=== PATIENT | male | born 1945 | race Caucasian/White ===

== ENCOUNTER 2017-04-23 18:15 | Emergency (ER) | payer MEDICARE, BC ==
[~2017-04-23] VITALS: Ht 180.3 cm; Wt 117.0 kg
[~2017-04-23 18:15] MED LIST: ALLO100T PO; APIX5TAB PO; ASPI81TA81; ATOR1TAB18 PO; CARV12.52 PO; COQ-100C2; FURO40TA PO; ISOS30TA3 PO; LANTUS2P SQ; NITR0.4S SL; NOVOLOGP2 SQ; RENATAB; SACU1TAB PO; TAMS0.4C4 PO; TRAM50TA PO
[2017-04-23 18:19] VITALS: BP 141/69; PULSE 78; RESP 18; TEMP 98.2; O2SAT 95
[2017-04-23] MEDS ORDERED: BOSW5TAB PO (18:33)
[2017-04-23] MEDS ORDERED: RENAL MULTIVITAMIN (18:33)
[2017-04-23] MEDS ORDERED: COQ-30CA2 PO (18:33)
[2017-04-23] MEDS ORDERED: NOVOLOGP2 SQ (18:33)
--- NOTE | 2017-04-23 18:33 | PD ---
HPI Chief Complaint: Lump, Cyst, Hernia Time Seen by Provider: 18:29 Travel History International Travel<30 days: No Contact w/Intl Traveler<30days: No Traveled to known affect area: No History of Present Illness HPI Patient 72-year-old male presents emergency Department with a painful lesion on his right thorax. States symptoms been present for the past few days and gradually worsening.. Patient notably has a history of end-stage renal disease on hemodialysis and last dialyzed today. 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 States is never turned red like it is today. Patient denies any fever nausea or vomiting shortness of breath. PFSH Past Medical History Hx Anticoagulant Therapy: Yes (ELIQUIS) Arthritis: No Asthma: No Atrial Fibrillation: Yes Autoimmune Disease: No Blood Disorders: No Anxiety: No Depression: Yes Heart Rhythm Problems: No Cancer: No Cardiovascular Problems: Yes (HTN, ) High Cholesterol: Yes Chemotherapy: No Chest Pain: Yes Congestive Heart Failure: Yes COPD: No Cerebrovascular Accident: Yes (BRAIN INFARCTION APPROX [address]) Coronary Artery Disease: Yes Diabetes: Yes Patient Takes Glucophage: No Diminished Hearing: No Endocrine: Yes Gastrointestinal Disorders: No GERD: No Glaucoma: No Gout: Yes Genitourinary: No Headaches: No Hepatitis: No Hiatal Hernia: No Heparin Induced Thrombocytopen: Yes Hypertension: Yes Immune Disorder: No Implanted Vascular Access Dvce: Yes (RIGHT ARM DIALYSIS FISTULA) Kidney Stones: No Musculoskeletal: No Neurologic: No Psychiatric: No Reproductive: No Respiratory: No Integumentary: No Myocardial Infarction: No Radiation Therapy: No Renal Failure: Yes Seizures: No Sickle Cell Disease: No Sleep Apnea: Yes Thyroid Disease: No Ulcer: No PNEUMOCCOCAL Vaccine (Year): 2008 Past Surgical History Abdominal Surgery: No AICD: No Appendectomy: No Arteriovenous Shunt: No Cardiac Surgery: Yes (PACE MAKER/BYPASS) Cholecystectomy: No Coronary Artery Bypass Graft: Yes (X2) Ear Surgery: No Endocrine Surgery: No Eye Surgery: No Genitourinary Surgery: No Gynecologic Surgery: No Insulin Pump: No Joint Replacement: No Neurologic Surgery: No Oral Surgery: No Pacemaker: Yes (medtronic) Thoracic Surgery: Yes (AICD, CABG) Other Surgery: Yes (CATARACT, LT HAND, LT LEG) Social History Alcohol Use: Yes (WEEKLY) Tobacco Use: No Substance Use: No Allergies-Medications (Allergen,Severity, Reaction): Coded Allergies: Heparin (Verified Allergy, Severe, HEPARIN INDUCED THROMBOCYTOPENIA, ) Reported Meds & Prescriptions Reported Meds & Active Scripts Active Bactrim DS (Sulfamethoxazole-Trimethoprim) 800-160 Mg Tab 1 Tab PO BID Reported Osteo Bi-Flex One A Day (Iywqcveid-Jbvyyzajiwz-Cbwsaqd) 1 Tab 1 Tab PO BID [Renal Multivitamin] Coq-10 (Coenzyme Q10 (Ubidecarenone)) 30 Mg Cap 12.5 Mg PO DAILY Novolog Inj (Insulin Aspart) 1,000 Unit/10 Ml Vial 30 Units SQ AFTER MEALS Tramadol (Tramadol HCl) 50 Mg Tab 50 Mg PO Q8H PRN Isosorbide Mononitrate ER (Isosorbide Mononitrate) 30 Mg Mirna 30 Mg PO DAILY Nitrostat SL (Nitroglycerin) 0.4 Mg Subl 0.4 Mg SL DIRECTED PRN 1 tablet under the tongue as needed for chest pain. Repeat every 5 minutes for a total of 3 DOSES or call 911 if NO relief. Eliquis (Apixaban) 5 Mg Tab 5 Mg PO BID Aspir-81 (Aspirin) 81 Mg Tabdr Carvedilol 12.5 Mg Tab 12.5 Mg PO BID Allopurinol 100 Mg Tab 100 Mg PO DAILY Furosemide 40 Mg Tab 40 Mg PO DAILY Entresto (Sacubitril-Valsartan) 24-26 Mg Tab 1 Tab PO DAILY Atorvastatin (Atorvastatin Calcium) 80 Mg Tab 80 Mg PO HS Lantus Inj (Insulin Glargine) 1,000 Unit/10 Ml Vial 100 Units SQ HS Review of Systems Except as stated in HPI: all other systems reviewed are Neg Physical Exam Narrative GENERAL: Well-nourished, well-developed patient. SKIN: There is a surgical scar well-healed on the right chest wall in the 9 o' clock position of the right breast. Lateral to this in the extreme 9 o'clock position of the right breast there is a fluctuant grape-sized area surrounded by minimal induration but cellulitis extending approximately 6 cm posterior and medial. No breast mass felt. HEAD: Normocephalic. EYES: No scleral icterus. No injection or drainage. NECK: Supple, trachea midline. No JVD or lymphadenopathy. CARDIOVASCULAR: Regular rate and rhythm without murmurs, gallops, or rubs. RESPIRATORY: Breath sounds equal bilaterally. No accessory muscle use. GASTROINTESTINAL: Abdomen soft, non-tender, nondistended. MUSCULOSKELETAL: No cyanosis, or edema. BACK: Nontender without obvious deformity. No CVA tenderness. Data Data Last Documented VS Vital Signs Date Time Temp Pulse Resp B/P Pulse Ox O2 Delivery O2 Flow Rate FiO2 04/23/17 19:00 72 17 128/61 96 Room Air 04/23/17 18:19 98.2 Orders Ed Poc Ultrasound (04/23/17 ) Lidocai-Epi 1%-1:100,000 Inj (Xylocaine- (04/23/17 19:00) Lidocaine 2% Inj (Xylocaine 2% Inj) (04/23/17 19:00) Sulfamet-Trimeth Ds 800-160 Mg (Bactrim (04/23/17 19:45) MDM Medical Decision Making Medical Screen Exam Complete: Yes Emergency Medical Condition: Yes Differential Diagnosis Inflammatory carcinoma seems unlikely, cellulitis, abscess, infected sebaceous cyst. Narrative Course Patient was roomed emerged permit, ultrasound suggested abscess versus infected sebaceous cyst. I highly doubt an inflammatory carcinoma. Discussed this differential diagnosis with him and recommended that he follow-up with his primary care physician for consideration of mammogram and he has an appointment later this week. Incision and drainage successful and patient will be placed on Bactrim first dose given in the emergency department. He is stable for discharge at this time. Discussed symptomatic management home and returned ED criteria. Procedures Procedure Narrative Bedside ultrasound soft tissue: Patient has cobblestoning and induration surrounding a cystic like structure approximately 2 x 2 centimeters in the position described above. Amenable to ER drainage. INCISION AND DRAINAGE: The area was prepped and was sterilely draped. A subcutaneous wheal of 2 % Xylocaine plain with a total number 5 mL was used to anesthetize the area properly. A number 11 scalpel was used to make a 1 -cm incision across the area of the abscess. The abscess was drained, yielding sebum and pus. The wound was explored bluntly and no loculations were appreciated, the cyst wall was removed to the best of my ability. Irrigated with normal saline. Half inch iodoform packing was placed in the wound. Sterile dressing applied. Patient advised to have packing removed in two days. Diagnosis Primary Impression: Infected sebaceous cyst of skin Additional Instructions: Follow-up with Dr. Ramos this week as scheduled, remove the packing in 48 hours. Watch for worsening redness or fevers. Take antibiotics as prescribed. Keep the wound clean and dry, showering is okay, apply soap and water. Med/Other Pt SpecificInfo: Prescription(s) given Scripts Sulfamethoxazole-Trimethoprim (Bactrim DS)800-160 Mg Tab1 Tab PO BID #14 TAB Ref 0 Prov:Thaddeus Estes MD 04/23/17 Disposition: 01 DISCHARGE HOME Condition: Stable Thaddeus Estes MD Apr 23, 2017 18:33
[2017-04-23 19:00] VITALS: BP 128/61; PULSE 72; RESP 17; O2SAT 96
[2017-04-23] MEDS ORDERED: LIDOCAINE 1%/EPINEPHrine 1:100,000 SOLN 20 ML VIAL INFIL ONE (19:00)
[2017-04-23] MEDS ORDERED: LIDOCAINE HCL 2% 50 ML VIAL INFIL ONE (19:00)
[2017-04-23] MEDS ORDERED: BACT800T5 PO (19:35)
[2017-04-23] MEDS ORDERED: SULFAMETHOXAZOLE-TRIMETHOPRIM DS 800-160 MG TAB PO ONE (19:45)
== END 2017-04-23 20:04 | disposition home or self-care (01) ==
LOC: PHED 18:15
DX: L72.3 Sebaceous cyst (principal); I12.0 Hypertensive chronic kidney disease with stage 5 chronic kidney disease or end stage renal disease; N18.6 End stage renal disease; E78.00 Pure hypercholesterolemia, unspecified; I50.9 Heart failure, unspecified; I25.10 Atherosclerotic heart disease of native coronary artery without angina pectoris; Z99.2 Dependence on renal dialysis; Z79.01 Long term (current) use of anticoagulants
CPT/HCPCS: 10061

== ENCOUNTER → 2017-05-09 | Outpatient (CLI) | payer MEDICARE, BC ==
[~2017-05-09] MED LIST changes: +BACT800T5 PO; +BOSW5TAB PO; -COQ-100C2; +COQ-30CA2 PO; +RENAL MULTIVITAMIN; -RENATAB; -TAMS0.4C4 PO
--- NOTE | 2017-05-15 10:48 | RSPPFT ---
DATE OF PROCEDURE: 05/09/17 COMMENTS: VOLUMES DYNAMIC: FVC and FEV1 moderately reduced. STATIC: TLC, RV and FRC moderately reduced. FLOWS: FEV1% normal; FEF 25-75 mildly reduced. DIFFUSION: Severely reduced. FLOW VOLUME LOOP; Restrictive configuration with terminal airflow obstruction. IMPRESSION: Mild to moderate restrictive ventilatory defect with a severe reduction in diffusion and terminal airflow obstruction. No significant improvement post-bronchodilator.
== END ==
LOC: PHRSP 08:05
PROVIDERS: ATTEND Internal Medicine
DX: J84.10 Pulmonary fibrosis, unspecified (principal)
CPT/HCPCS: 94060; 94620; 94726; 94729

== ENCOUNTER 2017-11-24 11:37 | Emergency (ER) | payer MEDICARE, BC | END 2017-11-24 12:11 | disposition home or self-care (01) | LOC: PHEFT 11:37 | DX: Z76.0 Encounter for issue of repeat prescription (principal); E11.9 Type 2 diabetes mellitus without complications; E78.00 Pure hypercholesterolemia, unspecified; F32.9 Major depressive disorder, single episode, unspecified; I11.0 Hypertensive heart disease with heart failure; I25.10 Atherosclerotic heart disease of native coronary artery without angina pectoris; I48.91 Unspecified atrial fibrillation; I50.9 Heart failure, unspecified; Z86.73 Personal history of transient ischemic attack (TIA), and cerebral infarction without residual deficits; Z99.2 Dependence on renal dialysis; Z95.1 Presence of aortocoronary bypass graft; Z79.4 Long term (current) use of insulin | CPT/HCPCS: 99281 ==

== ENCOUNTER 2017-12-17 13:48 | Day surgery (SDC) | payer MEDICARE, BC ==
[~2017-12-17] VITALS: Ht 180.3 cm; Wt 115.3 kg
[~2017-12-17 13:48] MED LIST changes: -ATOR1TAB18 PO; +ATOR80TA45 PO; -BACT800T5 PO; -ISOS30TA3 PO; +NUCY50TA10 PO; -TRAM50TA PO
[2017-12-17] MEDS ORDERED: LACTATED RINGER'S 1000 ML IV PRN (14:15)
[2017-12-17] MEDS ORDERED: SODIUM CHLORID 0.9% 500 ML IV PRN (14:15)
[2017-12-17] MEDS ORDERED: MUPIROCIN 2% OINT 1 APPLIC/GM SYR NASAL SCH (14:15)
[2017-12-17] MEDS ORDERED: NS 1000 ML IV SCH (14:15)
[2017-12-17] MEDS ORDERED: METOPROLOL TARTRATE 25 MG TAB PO PRN (14:15)
[2017-12-17] MEDS ORDERED: CHLORHEXIDINE GLUCONATE 2 % 1 PACK (2 CLOTHS) TOPICAL PRN (14:15)
[2017-12-17] MEDS ORDERED: POVIDONE IODINE 5% (ANTISEPSIS KIT) 4 APPLICATIONS EACH NARE SCH (14:15)
[2017-12-17] MEDS ORDERED: ceFAZolin 2 GM PREMIX 50 ML IV SCH (14:15)
[2017-12-17] MEDS ORDERED: POVIDONE IODINE 5% (ANTISEPSIS KIT) 4 APPLICATIONS EACH NARE PRN (14:15)
[2017-12-17] MEDS ORDERED: CHLORHEXIDINE GLUCONATE 2 % 1 PACK (2 CLOTHS) TOPICAL SCH (14:15)
[2017-12-17 14:28] VITALS: BP 148/83; PULSE 79; RESP 18; TEMP 97.6; O2SAT 98
[2017-12-17] MEDS ORDERED: VANCOMYCIN 1000 MG/NS 250 ML IV SCH ×2 (15:00)
[2017-12-17 15:10] LABS: AUTOMATED NEUTROPHIL # 7.2 TH/MM3 (1.8-7.7); BASOPHIL % 0.3 % (0.0-2.0); EOSINOPHIL # 0.1 TH/MM3 (0-0.4); EOSINOPHIL % 0.8 % (0.0-4.0); HEMATOCRIT 30.7 % (39.0-51.0); HEMOGLOBIN 9.9 GM/DL (13.0-17.0); LYMPH % 10.5 % (9.0-44.0); LYMPHOCYTE # 0.9 TH/MM3 (1.0-4.8); MEAN CELL VOLUME 62.6 FL (80.0-100.0); MEAN CORPUSCULAR HEMOGLOBIN 20.2 PG (27.0-34.0); MEAN CORPUSCULAR HGB CONC 32.2 % (32.0-36.0); MEAN PLATELET VOLUME 10.4 FL (7.0-11.0); MONOCYTE # 0.6 TH/MM3 (0-0.9); NEUT % 81.4 % (16.0-70.0); PLATELET COUNT 110 TH/MM3 (150-450); RED BLOOD COUNT 4.91 MIL/MM3 (4.50-5.90); RED CELL DISTRIBUTION WIDTH 17.4 % (11.6-17.2); WHITE BLOOD COUNT 8.9 TH/MM3 (4.0-11.0)
[2017-12-17 15:23] LABS: INTERNATIONAL NORMALIZED RATIO 1.1 RATIO; PROTHROMBIN TIME - PATIENT 10.8 SEC (9.8-11.6)
[2017-12-17 15:26] LABS: BICARBONATE 25.1 MEQ/L (21.0-32.0); CALCIUM 8.9 MG/DL (8.5-10.1); CREATININE 3.29 MG/DL (0.60-1.30)
[2017-12-17 15:55] LABS: OVALOCYTES 2+ (NORMAL)
[2017-12-17 15:56] LABS: ACANTHOCYTES 1+ (NORMAL); BURR CELLS 1+ (NORMAL)
[2017-12-17] MEDS ORDERED: PROPOFOL 200 MG/20 ML AMP ONE (19:01)
[2017-12-17] MEDS ORDERED: MIDAZOLAM HCL 2 MG/2 ML VIAL ONE (19:02)
[2017-12-17] MEDS ORDERED: LIDOCAINE HCL 2% 50 ML VIAL ONE (19:24)
[2017-12-17] MEDS ORDERED: VANCOMYCIN 500 MG VIAL ONE (19:24)
--- NOTE | 2017-12-17 20:09 | CATHPROC ---
Patient Name: NKECHI ACUNA Study #: [id number] Initial MD: Safia Lenz Date of : 1945 Study Date: 12/17/2017 Cardiac Catheterization Report 12/17/2017 8:09:34 PM Financial #: [id number] 1 of 8 Patient Name: NKECHI ACUNA Study #: [id number] Initial MD: Safia Lenz Date of : 1945 Study Date: 12/17/2017 Entire Case Report Patient Information Patient Name NKECHI ACUNA Date of 1945 Age 72 years Financial # [id number] Gender M AlternateID Lab Number 6 Room Number DC09 Height (in) 71.0 Height (cm) 180.3 BSA 2.33 Weight (lbs) 253.7 Weight (kg) 115.3 Patient Address/Phone Number Home Address [facility] Home Phone Number [address] [facility] [place] [address] Study Information Study Number Admission Scheduled Start Study Start [id number] Dec 17 2017 1:48PM 12/17/2017 Dec 17 2017 6:49PM [place] Cardiac Pacer/ICD Admit Source Facility Department Other [facility] - [facility] Physician and Clinical Staff Initial Safia Alas Broadband Engineer Jocy Wheeler,LICENSING SPECIALIST Other Anesthesia, ELEVATOR CONSTRUCTOR Recorder Frances Ridley,CHELY Scrub Diamond Gallegos,PROJECT DIRECTOR TECH2 12/17/2017 8:09:34 PM Financial #: [id number] 2 of 8 Patient Name: NKECHI ACUNA Study #: [id number] Initial MD: Safia Lenz Date of : 1945 Study Date: 12/17/2017 Equipment Time [employer] Head Description Size Mfg Part Number Used/Scraped DERMABOND, ADHESIVE SKIN [id number] 18:51 CORDIS/PACER * Used GLUE MINI *[id number] 18:51 MEDLINE INDUSTRIES SUTURE, STRIP PLUS 1/2" * Used *[id number] 18:51 MEDLINE PACER NDIAYE, LIMB * 2530 *[id number] Used [id number] 18:51 MEDLINE PACER PACK, PACER CUSTOM * Used *[id number] 19:36 Needle Sponge Count 1 111 Used 19:37 Needle Sponge Count 1 1 Used 19:36 Needle Sponge Count 20 200 Used SUTURE, 2-0 VICRYL [CT1] ([id number]) [id number] 18:51 [employer],WARM AIR CCL * Used *[id number] [facility] PAD, ELECTROSURGICAL 18:51 * [id number] *[id number] Used SURGICAL GROUNDING ORANGE 20:07 VITATRON MEDTRONIC MONITOR, PACEMAKER\\ICD [id number] Used PACEMAKER, AMPLIA MRI WOVEN BLIND LOOM TENDER-D 19:48 VITATRON MEDTRONIC DDEDDDDR [id number] Used SURESCAN [id number] 19:22 VITATRON MEDTRONIC PLASMABLADE, PEAD 3.0S * Used *[id number] Equipment Model, Serial, Lot Number and Expiration Data Description Model Number Serial Number Lot Number Expiration Date PACEMAKER, AMPLIA MRI WOVEN BLIND LOOM TENDER-D [id number] 11-01-2018 [employer] Insurance Information Insurance Payor Medicare Third Alliance Party Third Alliance Party Number MEDICARE A B MCRAB History: Allergies Allergy Reaction Heparin HEPARIN INDUCED THROMBOCYTOPENIA heparin (porcine) HEPARIN INDUCED THROMBOCYTOPENIA enoxaparin HEPARIN INDUCED THROMBOCYTOPENIA JEREMIAH Inhibitors 12/17/2017 8:09:34 PM Financial #: [id number] Patient Name: NKECHI ACUNA Study #: [id number] Initial MD: Safia Lenz Date of : 1945 Study Date: 8 History: Risk Factors Hypertension Dyslipidemia Yes Yes Prior CABG Yes Diabetes No Labs Hgb (g/dl) Hct (%) RBC (MIL/MM3) WBC (l/cumm) Platelets (thousands) 11.60-17.00 35.00-51.00 4.00-5.90 4.00-11.00 150.00-450.00 9.0 30 4.9 8.9 110 Glucose (mg/dl) BUN (mg/dl) Creatinine (mg/dl) BUN:Creatinine (1:x) 74.00-106.00 7.00-18.00 0.50-1.30 10.00-20.00 163 25 3.3 7.6 Na (meq/l) K (meq/l) 136.00-145.00 3.50-5.10 138 4 INR (PTT:PT) 0.90-1.10 1.1 Medication Medication Total Dose (Bolus/Oral) Medication Total Dosage/Unit 2% XYLOCAINE 50 mL Medications (Bolus/Oral) Medication Time Given Dosage/Unit Administered By Reason 2% XYLOCAINE 12/17/2017 7:43:59 PM 50 mL Safia Lenz 50 mL 2% XYLOCAINE given by Safia Lenz in Left upper chest via Subcutaneous. Medication (Drip) Medication Time Given Dosage/Unit Concentration/Unit Diluent (ml) Solution ANCEF 12/17/2017 7:30:58 PM 1 g 1 g ANCEF given by Anesthesia, ELEVATOR CONSTRUCTOR via Peripheral IV. Ordered by Safia Lenz. Reason: As per physi cians verbal order. VANCOMYCIN DRIP 12/17/2017 7:30:00 PM 1 g 1 g VANCOMYCIN DRIP given by Anesthesia, ELEVATOR CONSTRUCTOR via Peripheral IV. Ordered by Safia Lenz. Reason: As per physicians verbal order. 12/17/2017 8:09:34 PM Financial #: [id number] 4 of 8 Patient Name: NKECHI ACUNA Study #: [id number] Initial MD: Safia Lenz Date of : 1945 Study Date: 12/17/2017 Initial Case Assessment Cardiovascular HR Rhythm NIBP Chest Pain 69 sr 133/80 0 Edema Present Skin color Skin None Normal Warm Dry Circulatory - Right Pulses Radial 1 Scale (0,1,2,3,4,d) Circulatory - Left Pulses Radial 1 Scale (0,1,2,3,4,d) Circulatory - Lower Extremities Color Lower Right Color Lower Left Normal Normal Neurological State Oriented to time-place- Alert Moves all extremities person Respiration - General Respiration Rate SpO2 (%) O2 (lpm) (B/min) 20 99 4 12/17/2017 8:09:34 PM Financial #: [id number] 5 of 8 Patient Name: NKECHI ACUNA Study #: [id number] Initial MD: Safia Lenz Date of : 1945 Study Date: 12/17/2017 Final Case Assessment Cardiovascular HR Rhythm NIBP Chest Pain 71 sr 146/80 0 Circulatory - Right Pulses Radial 1 Scale (0,1,2,3,4,d) Circulatory - Left Pulses Radial 1 Scale (0,1,2,3,4,d) Circulatory - Lower Extremities Color Lower Right Color Lower Left Normal Normal Neurological State Lethargic Moves all extremities Respiration - General Respiration Rate SpO2 (%) O2 (lpm) (B/min) 18 100 4 Chronological Log Time Study Chronological Log 19:16:55 Patient arrived via Bed. 19:17:10 Patient Name, D.O.B, / Armband Verified By R.N. 19:17:15 Consent signed by the physician and the patient and verified by the [facility] staff. 19:17:18 Pre-op and post- op instructions given; patient acknowledges understanding of instructions. 19:17:20 Verbal Stimulation=2 Physical Stimulation=2 Airway=2 Respiration=2 TOTAL=8. (0=absent, 1=li mited, 2=present) 19:18:00 Anesthesia at bedside. Assumes care of patient. Nayan 19:20:41 Patient has been NPO for More than 6Hrs. 19:20:43 Skin Breakdown- none pt pt 19:20:49 Patient Warmer Placed on the Table. 19:20:49 Disposable Defibrillator Pads Placed On Patient. 19:20:50 Kasandra Prominences Protected 12/17/2017 8:09:34 PM Financial #: [id number] Patient Name: NKECHI ACUNA Study #: [id number] Initial MD: Safia Lenz Date of : 1945 Study Date: 12/17/2017 19:20:51 A # 20 IV was noted in the Hand (right). Grade = 0 0.9ns kvo 19:21:05 History and physical on the chart. 19:21:11 Table restraints applied according to hospital policy 19:21:15 2% CHLORHEXIDINE GLUCONATE WASH AND NASAL SWIPE DONE PRIOR TO PROCEDURE. 19:21:18 Bovie ground pad applied to: right thigh 19:21:33 Left Upper Chest Prepped Times Two. 19:28:33 Device rep present. 1 g VANCOMYCIN DRIP given by Anesthesia, ELEVATOR CONSTRUCTOR via Peripheral IV. Ordered by Safia Lenz. Reas on: As per 19:30:00 physicians verbal order. Assessment: Initial Case, HR=69 BPM, Rhythm=sr, FSNS=526/80 mmhg, Chest Pain=0, Edema=None, Col or=Normal, Skin = Warm, Dry Right Pulses: Radial=1 Left Pulses: Radial=1 19:30:20 Lower Right Extremities: Color=Normal Lower Left Extremities: Color=Normal Neurological: State=Alert, Ox3, SCHMITZ Respiration: Resp=20 B/min, SpO2=99 %, O2=4 lpm 1 g ANCEF given by Anesthesia, ELEVATOR CONSTRUCTOR via Peripheral IV. Ordered by Safia Lenz. Reason: As per physicians verbal 19:30:58 order. 19:31:06 MD arrived. First Sponge And Instrument Count Done by Diamond Gallegos PROJECT DIRECTOR TECH2. 19:36:04 Hypo's: 1, Sponges: 20, Bovie/scratch: 1 Sutures: 3, Blades: 1, Instruments: 26, Syveck Patches: 0 Time Out. Correct patient, procedure, procedure equipment, site and side verified with physicia n present. Time 19:43:09 concurred by MD, individual staff and ELEVATOR CONSTRUCTOR. Time Out #2 - Consents verified, patient in correct position, all results are labled and displa yed, safety precautions 19:43:25 taken, antibiotics administered. Time out concurred by MD, individual staff and ELEVATOR CONSTRUCTOR in procedu re 19:43:43 Case Start 19:43:59 50 mL 2% XYLOCAINE given by Safia Lenz in Left upper chest via Subcutaneous. 19:44:38 Surgical Incision Made. 19:44:45 A pocket was created at the L Upper Chest. 19:49:44 A device was explanted. 19:54:58 Pocket flushed with antibiotic solution 19:55:00 A PACEMAKER, AMPLIA MRI WOVEN BLIND LOOM TENDER-D SURESCAN DDEDDDDR was connected and placed in the pocket. 19:55:06 Implant Procedure was performed. 19:55:12 A Bivent ICD Implant . (Dual) Gen change Second Sponge And Instrument Count Done by Diamond Gallegos PROJECT DIRECTOR TECH2. 19:58:32 Hypo's: 1, Sponges: 20, Bovie/scratch: 1 Sutures: 3, Blades: 1, Instruments:, Syveck Patches: 20:00:09 The pocket was closed. Final Sponge And Instrument Count Done by Diamond Gallegos PROJECT DIRECTOR TECH2. 20:03:52 Hypo's: 1, Sponges: 20, Bovie/scratch: 1 Sutures: 3, Blades: 1, Instruments: 26, Syveck Patches: 0 20:04:22 Steri-strips and a sterile dressing applied to site. 20:05:39 DOCU called. Spoke to Duglas 12/17/2017 8:09:34 PM Financial #: [id number] Patient Name: NKECHI ACUNA Study #: [id number] Initial MD: Safia Lenz Date of : 1945 Study Date: 12/17/2017 20:05:47 Bedside Report will be given. 20:06:00 Case End 20:06:13 No case complications noted. 20:06:14 Cine recording checked. 20:06:17 Implantable Device card placed in patient's chart. 20:06:21 Defibrillator and ground pads removed. Skin intact. Assessment: Final Case, HR=71 BPM, Rhythm=sr, RUXR=067/80 mmhg, Chest Pain=0 Right Pulses: Radial=1 Left Pulses: Radial=1 20:08:10 Lower Right Extremities: Color=Normal Lower Left Extremities: Color=Normal Neurological: State=Lethargic, SCHMITZ Respiration: Resp=18 B/min, WdF4=694 %, O2=4 lpm 20:12:50 Patient moved to stretcher End Study - Contrast Media Used In Study Contrast Total Opened (mL) Total Used (mL) Total Wasted (mL) Unspecified 0 0 0 End Study - Maximum Contrast Load Max Contrast Load (mL) 174.7 End Study - Radiation Exposure Fluoro Time (minutes) 0.1 End Study - Patient Disposition Complications Transferred To Interventional Outcome No Telemetry Bed successful 12/17/2017 8:09:34 PM Financial #: [id number]
[2017-12-17] MEDS ORDERED: CEPH-460 PO (20:10)
[2017-12-17] MEDS ORDERED: HYDR-3366 PO (20:10)
[2017-12-17] MEDS ORDERED: ONDANSETRON HCL 4 MG/2 ML VIAL IV PUSH PRN (20:15)
[2017-12-17] MEDS ORDERED: SODIUM CHLORIDE 0.9% FLUSH 10 ML FLUSH IV FLUSH PRN (20:15)
[2017-12-17] MEDS ORDERED: SODIUM CHLORIDE 0.9% FLUSH 10 ML FLUSH IV FLUSH SCH (21:00)
--- NOTE | 2017-12-19 09:39 | EKG ---
Date Performed: 12/17/2017 Time Performed: 14:51:58 PTAGE: 72 years EKG: Paced rhythm Abnormal ECG PREVIOUS TRACING : 10/01/2016 13.23 Since the prior tracing, there has been no significant selby DOCTOR: Kervin Young Interpretating Date/Time 12/19/2017 09:38:48
--- NOTE | 2017-12-19 09:39 | EKG ---
Date Performed: 12/17/2017 Time Performed: 20:41:14 PTAGE: 72 years EKG: Paced rhythm Abnormal ECG PREVIOUS TRACING : 12/17/2017 14.51 Since the prior tracing, there has been no significant selby DOCTOR: Kervin Young Interpretating Date/Time 12/19/2017 09:39:03
--- NOTE | 2017-12-27 15:33 | MP ---
cc: TYSHAWN SOUSA M.D. DATE OF SURGERY: 12/17/2017 OPERATION Biventricular pacer defibrillator removal, biventricular pacer defibrillator replacement. INDICATION Mr. Rico is a 72-year-old gentleman with history of congestive heart failure, cardiomyopathy. He has a previous biventricular pacer defibrillator implanted. Last echo in May of 2016, EF was 25%. He had history of atrial fibrillation, referred for generator replacement. The risks, the nature and the benefit of the procedure were clearly stated to him. Risks include pneumothorax, cardiac perforation, stroke and even . The patient understands and agrees to proceed. The patient is in permanent atrial fibrillation. PROCEDURE After written informed consent was obtained, the patient was brought to the EP lab where he was prepped and draped in the usual sterile fashion. Conscious sedation was initiated and maintained throughout the procedure by anesthesiologist. Once sedation was verified, the left infraclavicular area was anesthetized with 2% Xylocaine. Using #11 blade scalpel, a 3-cm incision was made over the existing generator. Dissection was taken down to deep fascial layer using Bovie cautery and blunt dissection. Once exposed generator was removed from the pocket. Scar tissue was removed on the lead. Pocket was expanded, pocket revision was performed. Then the lead was disconnected from the generator and tested. After adequate pacing and sensing threshold was obtained, the leads were connected to the new generator and placed into the pocket. Previous to that the pocket was copiously irrigated using antibiotic solution. At this point I did proceed with wound closure. The deep fascial layer was approximated using #2-0 Vicryl suture in a continuous fashion. The subcutaneous layer was approximated using #2-0 Vicryl suture in a continuous fashion. The subcuticular layer was approximated using #2-0 Vicryl suture in a continuous fashion. Dermabond adhesive was applied to the wound followed by sterile pressure dressing. There was no complication. The patient tolerated the procedure. Blood loss was minimal. 1. Explanted hardware. The explanted defibrillator generator is a Medtronic, model number D314TR_. Serial number [id number], that was implanted in 2011. 2. Implanted hardware. The implanted biventricular pacer defibrillator is a Medtronic. Please refer to interrogation note. 3. Threshold. The right atrial pacing threshold cannot be measured, the patient is in atrial fibrillation ____ 2.1 mV. Lead impedance 400 ohms. The right ventricular pacing threshold in bipolar mode was 0.75 volts at 0.5 milliseconds. Lead impedance 760 ohms. R-wave cannot be measured, the patient is pacemaker dependent. The left ventricular pacing threshold in bipolar mode was 1 volt at 0.5 milliseconds, lead impedance 455 ohms. 4. Setting. The device set in VVI 70, upper rate limit 120 beats per minute. LV first by 40 milliseconds, defibrillatory portion for two zone, one zone for ventricular tachycardia between 160-240 beats per minute. Initial therapy consists of one burst of ATP, one ramp, 81% ten pulse, 10 millisecond decremental followed by 20 then 25 and second shock at 35 joule defibrillatory shock. Second zone for ventricular fibrillation above 240 beats per minute, first therapy at 25 and a second shock at 35 joule defibrillatory shock. CONCLUSION Successful biventricular pacer defibrillator removal, biventricular pacer defibrillator replacement. COMMENT AND RECOMMENDATIONS The patient is going to be transferred to the telemetry unit. Will be observed and when stable can be discharged home. MD BERNARDO Noguera/NUSRAT /9:21 AM /1:51 PM
== END 2017-12-17 21:47 | disposition home or self-care (01) ==
LOC: HDIC 13:48 → HCAT 13:48
PROVIDERS: ATTEND Internal Medicine Interventional Cardiology
DX: Z45.02 Encounter for adjustment and management of automatic implantable cardiac defibrillator (principal); I11.0 Hypertensive heart disease with heart failure; I50.9 Heart failure, unspecified; I48.91 Unspecified atrial fibrillation; I25.5 Ischemic cardiomyopathy; I25.119 Atherosclerotic heart disease of native coronary artery with unspecified angina pectoris; I08.1 Rheumatic disorders of both mitral and tricuspid valves; E11.9 Type 2 diabetes mellitus without complications; Z79.4 Long term (current) use of insulin; Z79.82 Long term (current) use of aspirin; Z79.01 Long term (current) use of anticoagulants; Z87.891 Personal history of nicotine dependence
CPT/HCPCS: 00534; 33264; 80048; 85025; 85610; 85730; 86850; 86900; 86901; 93005; C1882; J2250; J3010; J3370; 33240; C1721